=== PATIENT | female | born 1945 | race Caucasian/White ===

== ENCOUNTER 2018-04-27 14:11 | Emergency (ER) | payer OTHER, SELFPAY ==
[2018-04-27 14:13] VITALS: BP 185/101; PULSE 107; RESP 16; TEMP 36.5; O2SAT 98; BMI 25.0
--- NOTE | 2018-04-27 14:35 | DI.CT.S_ITS ---
PROCEDURE: CT HEAD/BRAIN WO CON INDICATIONS: double vision since friday: headache x 2 months TECHNIQUE: Noncontrast 4.5 mm thick angled axial sections acquired from the foramen magnum to the vertex, with coronal and sagittal reformats. For radiation dose reduction, the following was used: automated exposure control, adjustment of mA and/or kV according to patient size. COMPARISON: None. FINDINGS: Image quality: Diagnostic CSF spaces: Basal cisterns are patent. No extra-axial fluid collections. Ventricles are normal in size and shape. Brain: No midline shift. No intracranial masses or hemorrhage. Harmon-white matter interface is normal. Scattered subtle areas of low attenuation are seen within the periventricular and deep white matter of the supratentorial brain. Skull and face: Calvarium and visualized facial bones are intact, without suspicious lesions. Sinuses: Visualized sinuses and mastoids are clear. IMPRESSION: 1. No acute intracranial hemorrhage. 2. Chronic small vessel ischemic changes. Dictated by: Onesimo Booker M.D. on 04/27/2018 at 14:15 Approved by: Onesimo Booker M.D. on 04/27/2018 at 14:16
--- NOTE | 2018-04-27 14:51 | ED_ITS ---
HPI - Eye Problem <RUTH Tsang - Last Filed: 04/27/18 21:22> General Chief complaint: Eye Problems Stated complaint: DOUBLE VISION Time Seen by Provider: 04/27/18 14:47 Source: patient Mode of arrival: ambulatory Limitations: no limitations History of Present Illness HPI Narrative: 72-year-old female here for complaint of having double vision over the past couple of days. She states that she woke up on Friday morning noticed that she was seen double vision that is stacked vertically. She reports that this happens when she looks in front of her and above her. She states when she looks down the symptoms resolved. She states she covers are the left eye or the right eye the double vision disappears as well. She states she has had a headache but this has been for the last couple of months. Pain is to the back of the head and rest over to the top of the scalp. She denies any fevers. Denies any worsening headache over the last few days. She denies any trauma to the eyes. She denies any head trauma. No nausea or vomiting. She is ambulatory into the emergency room. She denies any neurological deficits. chief complaint: vision change Related Data Home Medications Medication Instructions Recorded Confirmed simvastatin 40 mg PO QPM 04/27/18 04/27/18 Allergies Allergy/AdvReac Type Severity Reaction Status Date / Time cephalexin [From Keflex] Allergy Hives Verified 04/27/18 14:24 Review of Systems <RUTH Tsang - Last Filed: 04/27/18 21:22> Constitutional Denies chills, Denies fever(s), Reports headache(s), Denies lethargy and Denies weakness Eyes Denies change in vision, Reports diplopia, Denies eye discharge, Denies irritation and Denies loss of vision ENT Ears, Nose, Mouth, and Throat: Denies change in voice, Reports headache(s), Denies neck pain and Denies sore throat Cardiovascular Denies chest pain, Denies irregular heart rhythm, Denies lightheadedness, Denies palpitations, Denies dyspnea, Denies dyspnea on exertion and Denies orthopnea Respiratory Denies cough, Denies dyspnea, Denies dyspnea on exertion and Denies wheezing Gastrointestinal Gastrointestinal: Denies abdominal pain, Denies change in bowel habits, Denies diarrhea, Denies nausea and Denies vomiting Genitourinary Denies hematuria, Denies flank pain, Denies urinary incontinence and Denies urinary urgency Musculoskeletal Denies neck pain Integumentary/Breasts Denies pruritus, Denies erythema, Denies rash and Denies wounds Neurologic Denies confusion, Reports headache(s), Denies loss of vision and Denies weakness Psychiatric Denies anxiety, Denies confusion, Denies depression, Denies homicidal ideation and Denies suicidal ideation Endocrine Denies palpitations Hematologic/Lymphatic Denies easy bruising Allergic/Immunologic Denies wheezing Exam <RUTH Tsang - Last Filed: 04/27/18 21:22> Initial Vital Signs Initial Vital Signs: Vital Signs Temperature 97.7 F 04/27/18 14:13 Pulse Rate 107 H 04/27/18 14:13 Respiratory Rate 16 04/27/18 14:13 Blood Pressure 185/101 H 04/27/18 14:13 Pulse Oximetry 98 04/27/18 14:13 Const General: cooperative and well developed Nutritional Appearance: well nourished Orientation: alert, awake, oriented x3 and not confused HENHI Mouth: oral mucosae normal and moist mucous membranes Eyes Visual Ross: normal visual ross by confrontation Alignment and Position: alignment abnormal (On eomi eye testing slight misalignment between left and right eyes in movement. ) Periorbital: periorbital findings normal Eyelids: eyelids normal Conjunctivae: conjunctivae normal Sclera: sclerae normal Cornea: corneas normal Pupils: PERRL EOM: EOM intact bilaterally and No nystagmus Direct ophthalmoscopy: normal light reflex Neck Neck: normal visual inspection, trachea midline, No lymphadenopathy, No midline deformity and No JVD Lymphatic: No lymphedema Resp Effort & Inspection: normal respiratory effort, able to speak in complete sentences, no respiratory distress and no use of accessory muscles Auscultation: clear to auscultation bilaterally, no rales, no rhonchi and no wheezes Cardio Rate: regular rate Rhythm: regular rhythm Heart Sounds: no click, no gallops, no murmurs and no rubs GI Inspection: non-distended Palpation: soft, no hepatosplenomegaly, No guarding, No pulsatile mass and No tender Auscultation: normal bowel sounds Skin General: no rashes or lesions noted, No jaundice and No petechiae Neuro General: alert, oriented x3, gait normal and no focal motor deficits Cranial Nerves: No nystagmus Speech: speech normal <Allison Boothe DO - Last Filed: 04/28/18 08:17> Initial Vital Signs Initial Vital Signs: Vital Signs Temperature 97.7 F 04/27/18 14:13 Pulse Rate 107 H 04/27/18 14:13 Respiratory Rate 16 04/27/18 14:13 Blood Pressure 185/101 H 04/27/18 14:13 Pulse Oximetry 98 04/27/18 14:13 Scores <RUTH Tsang - Last Filed: 04/27/18 21:22> NIH Stroke Scale Level of Conciousness: Alert, keenly responsive Ask month/age: Answers both questions correctly. Open/close eyes, close hand: Performs both tasks correctly Best gaze horizontal: Normal Visual ross: No visual loss Facial palsy: Normal symetrical movement Left arm drift: No drift for full 10 sec Right arm drift: No drift for full 10 sec Left leg drift: No drift for full 10 sec Right leg drift: No drift for full 10 sec Limb ataxia: Absent Sensory on face/arms/legs: Normal, no sensory loss Best language: No aphasia, normal Dysarthria: Normal Extinction or inattention: No abnormality Total NIH Stroke scale score: 0 Course <RUTH Tsang - Last Filed: 04/27/18 21:22> Orders Ordered: Discontinued Medications Acetaminophen (Tylenol) 650 mg PO NOW ONE Stop: 04/27/18 17:57 Last Admin: 04/27/18 17:58 Dose: 650 mg Methylprednisolone 375 mg/ (Sodium Chloride) 253 mls @ 253 mls/hr IV NOW ONE Stop: 04/27/18 20:41 Last Infusion: 04/27/18 21:37 Dose: 0 mls/hr Admin: 04/27/18 21:04 Dose: 253 mls/hr Labetalol HCl (Trandate) 10 mg IV NOW ONE Stop: 04/27/18 21:58 Last Admin: 04/27/18 21:58 Dose: 10 mg Methylprednisolone (Solu-Medrol 125 Mg Vial) 125 mg IV NOW ONE Stop: 04/27/18 20:03 Last Admin: 04/27/18 20:36 Dose: 125 mg Metoprolol Tartrate (Lopressor) 12.5 mg PO NOW ONE Stop: 04/27/18 16:46 Last Admin: 04/27/18 16:48 Dose: 12.5 mg Vital Signs - 8 hr 04/27/18 14:13 04/27/18 16:00 04/27/18 16:30 Temperature 97.7 F Pulse Rate 107 H 94 H 95 H Respiratory Rate 16 20 21 Blood Pressure 185/101 H Blood Pressure [Left Arm] 185/90 H 204/106 H Pulse Oximetry 98 99 97 04/27/18 17:00 04/27/18 17:31 04/27/18 20:13 Temperature 98.5 F Pulse Rate 92 H 86 82 Respiratory Rate 20 16 18 Blood Pressure Blood Pressure [Left Arm] 186/95 H 189/91 H 199/97 H Pulse Oximetry 100 100 98 <Allison Boothe, - Last Filed: 04/28/18 08:17> Orders Ordered: Discontinued Medications Acetaminophen (Tylenol) 650 mg PO NOW ONE Stop: 04/27/18 17:57 Last Admin: 04/27/18 17:58 Dose: 650 mg Methylprednisolone 375 mg/ (Sodium Chloride) 253 mls @ 253 mls/hr IV NOW ONE Stop: 04/27/18 20:41 Last Infusion: 04/27/18 21:37 Dose: 0 mls/hr Admin: 04/27/18 21:04 Dose: 253 mls/hr Labetalol HCl (Trandate) 10 mg IV NOW ONE Stop: 04/27/18 21:58 Last Admin: 04/27/18 21:58 Dose: 10 mg Methylprednisolone (Solu-Medrol 125 Mg Vial) 125 mg IV NOW ONE Stop: 04/27/18 20:03 Last Admin: 04/27/18 20:36 Dose: 125 mg Metoprolol Tartrate (Lopressor) 12.5 mg PO NOW ONE Stop: 04/27/18 16:46 Last Admin: 04/27/18 16:48 Dose: 12.5 mg Vital Signs - 8 hr 04/27/18 14:13 04/27/18 16:00 04/27/18 16:30 Temperature 97.7 F Pulse Rate 107 H 94 H 95 H Respiratory Rate 16 20 21 Blood Pressure 185/101 H Blood Pressure [Left Arm] 185/90 H 204/106 H Pulse Oximetry 98 99 97 04/27/18 17:00 04/27/18 17:31 04/27/18 20:13 Temperature 98.5 F Pulse Rate 92 H 86 82 Respiratory Rate 20 16 18 Blood Pressure Blood Pressure [Left Arm] 186/95 H 189/91 H 199/97 H Pulse Oximetry 100 100 98 MDM - Eye Problem <RUTH Tsang - Last Filed: 04/27/18 21:22> Lab Data Result diagrams: 04/27/18 15:42 04/27/18 15:42 Lab Results 04/27/18 04/27/18 04/27/18 Range/Units 15:42 15:42 15:46 WBC 8.8 (4.5-11.0) X10^3/uL RBC 4.96 (4.0-5.2) X10^6/uL Hgb 14.1 (12.0-16.0) g/dL Hct 43.3 (36-46) % MCV 87.4 (80-100) fL MCH 28.5 (26-34) PG MCHC 32.6 (30-36) % RDW 13.6 (11.6-14.8) % Plt Count 252 (150-400) X10^3/uL Neut % (Auto) 74.7 (50-75) % Lymph % (Auto) 16.2 L (25-40) % Parke % (Auto) 7.5 (3-14) % Eos % (Auto) 0.8 L (2-4) % Baso % (Auto) 0.8 (0-2) % Neut # (Auto) 6600 H (8861-3846) /uL ESR (0-20) MM/HR Sodium 139 (137-145) mmol/L Potassium 3.8 (3.4-5.1) mmol/L Chloride 98 (98-107) mmol/L Carbon Dioxide 30 (22-32) mmol/L BUN 17 (7-17) mg/dL Creatinine 0.80 (0.52-1.04) mg/dL Estimated GFR > 60.0 (>60) mL/min BUN/Creatinine Ratio 21.3 (6-22) Glucose 90 (80-110) mg/dL Calcium 9.5 (8.4-10.2) mg/dL Total Bilirubin 0.5 (0.2-1.3) mg/dL AST 23 (14-36) IU/L ALT 21 (9-52) IU/L Alkaline Phosphatase 101 (38-126) U/L Total Creatine Kinase 27 L (30-135) U/L CK-MB (CK-2) TNP CK-MB (CK-2) Rel Index TNP Troponin I < 0.012 (0.01-0.034) ng/mL C-Reactive Protein 1.7 H (<1.0) mg/dL Total Protein 7.9 (6.3-8.2) g/dL Albumin 4.2 (3.5-5.0) g/dL Globulin 3.7 (1.7-4.1) g/dL Albumin/Globulin Ratio 1.1 (1.0-2.8) Urine RBC 0-1/hpf (0-5/HPF) Urine WBC 1-5/hpf (0-5/HPF) Ur Squamous Epith Cells 0-1 /hpf Urine Bacteria Few (2-10) H (None) Urine Mucus 1+ H (Negative) Ur Culture Indicated? Cult not indicated Micro UA Comment Not Reportable 04/27/18 Range/Units Unknown WBC (4.5-11.0) X10^3/uL RBC (4.0-5.2) X10^6/uL Hgb (12.0-16.0) g/dL Hct (36-46) % MCV (80-100) fL MCH (26-34) PG MCHC (30-36) % RDW (11.6-14.8) % Plt Count (150-400) X10^3/uL Neut % (Auto) (50-75) % Lymph % (Auto) (25-40) % Parke % (Auto) (3-14) % Eos % (Auto) (2-4) % Baso % (Auto) (0-2) % Neut # (Auto) (5419-6274) /uL ESR 36 H (0-20) MM/HR Sodium (137-145) mmol/L Potassium (3.4-5.1) mmol/L Chloride (98-107) mmol/L Carbon Dioxide (22-32) mmol/L BUN (7-17) mg/dL Creatinine (0.52-1.04) mg/dL Estimated GFR (>60) mL/min BUN/Creatinine Ratio (6-22) Glucose (80-110) mg/dL Calcium (8.4-10.2) mg/dL Total Bilirubin (0.2-1.3) mg/dL AST (14-36) IU/L ALT (9-52) IU/L Alkaline Phosphatase (38-126) U/L Total Creatine Kinase (30-135) U/L CK-MB (CK-2) CK-MB (CK-2) Rel Index Troponin I (0.01-0.034) ng/mL C-Reactive Protein (<1.0) mg/dL Total Protein (6.3-8.2) g/dL Albumin (3.5-5.0) g/dL Globulin (1.7-4.1) g/dL Albumin/Globulin Ratio (1.0-2.8) Urine RBC (0-5/HPF) Urine WBC (0-5/HPF) Ur Squamous Epith Cells Urine Bacteria (None) Urine Mucus (Negative) Ur Culture Indicated? Micro UA Comment Point of Care Testing Glucose POC 134 Urine Dip Bedside Urine Glucose Negative Bedside Urine Bilirubin - Negative Bedside Urine Ketone - Negative Urine Specific [place] 1.015 Bedside Urine Occult Blood +/- Bedside Urine pH 6.0 Bedside Urine Protein - Negative Bedside Urine Urobilinogen - Negative Bedside Urine Nitrite - Negative Bedside Urine Leukocytes - Negative Esterase MDM Narrative Medical decision making narrative: CT of the head was obtained was negative for any acute findings. Laboratory results today were unremarkable. EKG shows sinus rhythm with does say elevation or depression. No ectopy. Cardiac enzymes were checked and were un remarkable. Discussed case with ophthalmology Dr. Kimble who will follow up with patient tomorrow. He recommended a check ESR and CRP. Those labs were ordered. They came back mildly elevated. Discussed case with Dr kimble again and informed of elevated lab he recommended admission and IV steroids with rheumatology consult. He also recommended ENT or plastics consult for biopsy. Discussed case with [facility] doctor Nilson who contacted [facility] and found bed for patient. Patient is transferred to [facility] for further care via BLS. Patient was given 500 mg of Solu-Medrol in the emergency room IV <Allison Boothe DO - Last Filed: 04/28/18 08:17> Lab Data Lab Results 04/27/18 04/27/18 04/27/18 Range/Units 15:42 15:42 15:46 WBC 8.8 (4.5-11.0) X10^3/uL RBC 4.96 (4.0-5.2) X10^6/uL Hgb 14.1 (12.0-16.0) g/dL Hct 43.3 (36-46) % MCV 87.4 (80-100) fL MCH 28.5 (26-34) PG MCHC 32.6 (30-36) % RDW 13.6 (11.6-14.8) % Plt Count 252 (150-400) X10^3/uL Neut % (Auto) 74.7 (50-75) % Lymph % (Auto) 16.2 L (25-40) % Parke % (Auto) 7.5 (3-14) % Eos % (Auto) 0.8 L (2-4) % Baso % (Auto) 0.8 (0-2) % Neut # (Auto) 6600 H (2525-2207) /uL ESR (0-20) MM/HR Sodium 139 (137-145) mmol/L Potassium 3.8 (3.4-5.1) mmol/L Chloride 98 (98-107) mmol/L Carbon Dioxide 30 (22-32) mmol/L BUN 17 (7-17) mg/dL Creatinine 0.80 (0.52-1.04) mg/dL Estimated GFR > 60.0 (>60) mL/min BUN/Creatinine Ratio 21.3 (6-22) Glucose 90 (80-110) mg/dL Calcium 9.5 (8.4-10.2) mg/dL Total Bilirubin 0.5 (0.2-1.3) mg/dL AST 23 (14-36) IU/L ALT 21 (9-52) IU/L Alkaline Phosphatase 101 (38-126) U/L Total Creatine Kinase 27 L (30-135) U/L CK-MB (CK-2) TNP CK-MB (CK-2) Rel Index TNP Troponin I < 0.012 (0.01-0.034) ng/mL C-Reactive Protein 1.7 H (<1.0) mg/dL Total Protein 7.9 (6.3-8.2) g/dL Albumin 4.2 (3.5-5.0) g/dL Globulin 3.7 (1.7-4.1) g/dL Albumin/Globulin Ratio 1.1 (1.0-2.8) Urine RBC 0-1/hpf (0-5/HPF) Urine WBC 1-5/hpf (0-5/HPF) Ur Squamous Epith Cells 0-1 /hpf Urine Bacteria Few (2-10) H (None) Urine Mucus 1+ H (Negative) Ur Culture Indicated? Cult not indicated Micro UA Comment Not Reportable 04/27/18 Range/Units Unknown WBC (4.5-11.0) X10^3/uL RBC (4.0-5.2) X10^6/uL Hgb (12.0-16.0) g/dL Hct (36-46) % MCV (80-100) fL MCH (26-34) PG MCHC (30-36) % RDW (11.6-14.8) % Plt Count (150-400) X10^3/uL Neut % (Auto) (50-75) % Lymph % (Auto) (25-40) % Parke % (Auto) (3-14) % Eos % (Auto) (2-4) % Baso % (Auto) (0-2) % Neut # (Auto) (6999-5252) /uL ESR 36 H (0-20) MM/HR Sodium (137-145) mmol/L Potassium (3.4-5.1) mmol/L Chloride (98-107) mmol/L Carbon Dioxide (22-32) mmol/L BUN (7-17) mg/dL Creatinine (0.52-1.04) mg/dL Estimated GFR (>60) mL/min BUN/Creatinine Ratio (6-22) Glucose (80-110) mg/dL Calcium (8.4-10.2) mg/dL Total Bilirubin (0.2-1.3) mg/dL AST (14-36) IU/L ALT (9-52) IU/L Alkaline Phosphatase (38-126) U/L Total Creatine Kinase (30-135) U/L CK-MB (CK-2) CK-MB (CK-2) Rel Index Troponin I (0.01-0.034) ng/mL C-Reactive Protein (<1.0) mg/dL Total Protein (6.3-8.2) g/dL Albumin (3.5-5.0) g/dL Globulin (1.7-4.1) g/dL Albumin/Globulin Ratio (1.0-2.8) Urine RBC (0-5/HPF) Urine WBC (0-5/HPF) Ur Squamous Epith Cells Urine Bacteria (None) Urine Mucus (Negative) Ur Culture Indicated? Micro UA Comment Point of Care Testing Glucose POC 134 Urine Dip Bedside Urine Glucose Negative Bedside Urine Bilirubin - Negative Bedside Urine Ketone - Negative Urine Specific [place] 1.015 Bedside Urine Occult Blood +/- Bedside Urine pH 6.0 Bedside Urine Protein - Negative Bedside Urine Urobilinogen - Negative Bedside Urine Nitrite - Negative Bedside Urine Leukocytes - Negative Esterase Discharge Plan Departure Patient Disposition: [facility] Clinical Impression: Diplopia Discharge Date/Time: 04/27/18 22:11 Interventions: ED Discharge Assessment Last Done: 04/27/18 22:09 Prescriptions: No Action simvastatin 40 mg Tablet 40 mg PO QPM RF: 0 <Allison Boothe DO - Last Filed: 04/28/18 08:17> Cosign ED Attending Cosignature Attestation: I was immediately available in the department for consultation, case was discussed with plan for consultation after evaluation for CVA. This documentation has been reviewed and I agree with assessment and plan. Supervised by Allison Boothe DO
--- NOTE | 2018-04-27 15:06 | DI.RAD.S_ITS ---
PROCEDURE: XR CHEST 1V INDICATIONS: double vision TECHNIQUE: One view of the chest was acquired. COMPARISON: None. FINDINGS: Surgical changes and devices: Clips are present overlying the left hemithorax. Lungs and pleura: No pleural effusions or pneumothorax. Lungs are clear. Mediastinum: Mediastinal contours appear normal. Heart size is normal. Bones and chest wall: No suspicious bony lesions. Overlying soft tissues appear unremarkable. IMPRESSION: No acute pulmonary process. Dictated by: Carmencita Doe M.D. on 04/27/2018 at 16:19 Approved by: Carmencita Doe M.D. on 04/27/2018 at 16:20
[2018-04-27 15:49] LABS: Add Manual Diff / Slide Review NO; Basophils Percent Auto 0.8 % (0-2); Eosinophils Percent Auto 0.8 % (2-4); Hematocrit 43.3 % (36-46); Hemoglobin 14.1 g/dL (12.0-16.0); Lymphocytes Percent Auto 16.2 % (25-40); Mean Corpuscular HGB Conc 32.6 % (30-36); Mean Corpuscular Hemoglobin 28.5 PG (26-34); Mean Corpuscular Volume 87.4 fL (80-100); Monocytes Percent Auto 7.5 % (3-14); Neutrophils Absolute Auto 6600 /uL (3000-5900); Neutrophils Percent Auto 74.7 % (50-75); Platelet Count 252 X10^3/uL (150-400); Red Blood Cell Count 4.96 X10^6/uL (4.0-5.2); Red Cell Distribution Width 13.6 % (11.6-14.8); White Blood Cell Count 8.8 X10^3/uL (4.5-11.0)
[2018-04-27 16:00] VITALS: BP 185/90; PULSE 94; RESP 20; O2SAT 99
[2018-04-27 16:10] LABS: HEMOLYSIS < 15 (0-50)
[2018-04-27 16:17] LABS: Alanine Aminotransferase 21 IU/L (9-52); Albumin 4.2 g/dL (3.5-5.0); Albumin Globulin Ratio 1.1 (1.0-2.8); Alkaline Phosphatase 101 U/L (38-126); Aspartate Aminotransferase 23 IU/L (14-36); BUN Creatinine Ratio 21.3 (6-22); Bilirubin Total 0.5 mg/dL (0.2-1.3); Blood Urea Nitrogen 17 mg/dL (7-17); Calcium 9.5 mg/dL (8.4-10.2); Carbon Dioxide 30 mmol/L (22-32); Chloride 98 mmol/L (98-107); Creatine Kinase 27 U/L (30-135); Estimated Glomerular Filt Rate > 60.0 mL/min (>60); Globulin 3.7 g/dL (1.7-4.1); Glucose 90 mg/dL (80-110); Potassium 3.8 mmol/L (3.4-5.1); Sodium 139 mmol/L (137-145); Total Protein 7.9 g/dL (6.3-8.2)
[2018-04-27 16:30] VITALS: BP 204/106; PULSE 95; RESP 21; O2SAT 97
[2018-04-27 16:32] LABS: Troponin I < 0.012 ng/mL (0.01-0.034)
[2018-04-27 16:35] LABS: Bacteria Urine Few (2-10); Culture Indicated Urine Cult Not Indicated; Mucus Urine 1+ (Negative); RBC Urine 0-1/HPF (0-5/HPF); Squamous Epithelial Cell Urine 0-1 /HPF; WBC Urine 1-5/HPF (0-5/HPF)
[2018-04-27] MEDS: METOPROLOL 12.5 MG TABLET PO (16:48)
[2018-04-27 17:00] VITALS: BP 186/95; PULSE 92; RESP 20; O2SAT 100
[2018-04-27 17:17] LABS: C-Reactive Protein Quant 1.7 mg/dL (<1.0)
[2018-04-27 17:19] LABS: Erythrocyte Sedimentation Rate 36 MM/HR (0-20)
[2018-04-27 17:31] VITALS: BP 189/91; PULSE 86; RESP 16; O2SAT 100
[2018-04-27] MEDS: ACETAMINOPHEN 325 MG TABLET 650 MG PO (17:58)
[2018-04-27 20:13] VITALS: BP 199/97; PULSE 82; RESP 18; TEMP 36.9; O2SAT 98
[2018-04-27] MEDS: methylPREDNISolone 125 MG/2 ML VIAL IV (20:36)
[2018-04-27] MEDS: SODIUM CHLORIDE 0.9% IV (21:04)
[2018-04-27] MEDS: METHYLPREDNISOLONE IV (21:04)
--- NOTE | 2018-04-27 21:10 | PC.NURSE ---
solumedrol drip started
--- NOTE | 2018-04-27 21:37 | PC.NURSE ---
solumedrol drip continued in transport.
[2018-04-27] MEDS: LABETALOL 20 MG/4 ML SYRINGE 10 MG IV (21:58)
--- NOTE | 2018-04-27 22:10 | PC.NURSE ---
LAC IV DCd by Adali YEH
== END 2018-04-27 22:11 | disposition short-term general hospital (02) ==
PROVIDERS: Emergency Provider Nurse Practitioner Family
DX: H53.2 Diplopia (principal)
CPT/HCPCS: 36591; 70450; 71045; 80053; 81003; 81015; 82550; 82962; 84484; 85025; 85651; 86140; 93005; 93010; 96365; 96375; 96376; 99284; 99285; J2930

== ENCOUNTER → 2018-11-24 16:10 | Outpatient (CLI) | payer OTHER, SELFPAY ==
--- NOTE | 2018-11-24 16:14 | DI.RAD.S_ITS ---
PROCEDURE: XR FOOT LT MIN 3V INDICATIONS: foot pain TECHNIQUE: 3 views of the foot were acquired. COMPARISON: None. FINDINGS: Bones: No fractures or dislocations. No suspicious bony lesions. There is mild metatarsus adductus and hallux valgus. Bipartite medial sesamoid. Moderate first metatarsophalangeal joint degeneration. There is a calcaneal plantar spurring. Soft tissues: No tibiotalar joint effusion. Achilles tendon appears normal. IMPRESSION: 1. Mild metatarsus adductus and hallux valgus. 2. 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 3. Calcaneal spurring. Dictated by: Cynthia Colby M.D. on 11/24/2018 at 16:33 Approved by: Cynthia Colby M.D. on 11/24/2018 at 16:54
--- NOTE | 2018-11-24 16:14 | DI.RAD.S_ITS ---
PROCEDURE: XR ANKLE LT MIN 3V INDICATIONS: LEFT ANKLE PAIN TECHNIQUE: 3 views of the ankle were acquired. COMPARISON: [facility], , XR FOOT LT MIN 3V, 11/24/2018, 16:16. FINDINGS: Bones: No displaced fracture or dislocation is appreciated involving the left mid foot hindfoot. Plantar and Achilles spurs are noted. Ankle mortise is well-maintained. There are no osteochondral defects of the tibial plafond toward the talar dome. Mild heterogeneity of the medial malleolus probably is related to previous ligamentous injury. Soft tissues: No tibiotalar joint effusion. Achilles tendon appears normal. IMPRESSION: No acute osseous abnormality of the left ankle. Dictated by: Onesimo Booker M.D. on 11/24/2018 at 15:49 Approved by: Onesimo Booker M.D. on 11/24/2018 at 15:52
== END ==
PROVIDERS: Visit Provider Physician Assistant
DX: M79.672 Pain in left foot (principal); M25.572 Pain in left ankle and joints of left foot; M20.12 Hallux valgus (acquired), left foot; M77.32 Calcaneal spur, left foot; M19.072 Primary osteoarthritis, left ankle and foot
CPT/HCPCS: 73610; 73630